=== PATIENT | male | born 1960 | race Caucasian/White ===

== ENCOUNTER 2017-11-27 19:48 | Emergency (ER) | payer OTHER ==
[~2017-11-27] VITALS: Ht 182.9 cm; Wt 95.3 kg
[2017-11-27 19:54] VITALS: BP 148/86
--- NOTE | 2017-11-27 21:41 | RADIOLOGY REPORT ---
EXAMINATION: XR SHOULDER, RIGHT CLINICAL INFORMATION: Pain after fall. COMPARISON: None TECHNIQUE: 3 views of the right shoulder. FINDINGS: No acute fracture or dislocation is seen. There are mild degenerative changes of the right AC joint. Nonspecific soft tissue calcifications seen adjacent to the humerus. The glenohumeral articulation appears normal. No displaced upper right rib fractures are seen. The portions of the right lung are clear. IMPRESSION: No acute osseous traumatic findings of the right shoulder.
--- NOTE | 2017-11-27 21:45 | ED MVC/FALL/TRAUMA COMPLAINT ---
History of Present Illness General Chief Complaint: Upper Extremity Injury Stated Complaint: "BRANCH FELL ON RT ARM" Source: patient Exam Limitations: no limitations Vital Signs & Intake/Output Vital Signs & Intake/Output Vital Signs Date Time Temp Pulse Resp B/P B/P Pulse O2 O2 Flow FiO2 Mean Ox Delivery Rate 11/27 1953 97.3 89 20 148/86 97 Room Air ED Intake and Output 11/28 0000 11/27 1200 Intake Total Output Total Balance Patient 210 lb Weight Weight Reported by Patient Measurement Method Allergies Coded Allergies: No Known Allergies (11/27/17) Reconcile Medications Ibuprofen 800 MG TABLET 1 TAB PO TID PAIN Triage Note: PT HERE WITH C/O FALLING OFF LADDER AND LANDING ON RIGHT ARM. PT REPORTS THAT HE WAS CUTTING A BRANCH THAT FELL AND KNOCKED HIM OVER. DENIES LOC OR HEADSTRIKE. DENIES BLOOD THINNERS. Triage Nurses Notes Reviewed? yes Onset: Abrupt Duration: hour(s): (2), constant, continues in ED, getting worse Timing: single episode today Severity: moderate, severe Severity Numbers: 7 Injuries/Fall Location: upper extremity Method of Injury: direct blow Loss of Consciousness: no loss of consciousness HPI: 57-year-old male with no medical history presents for evaluation of right shoulder pain. Patient reports that he was cutting a branch when it fell and landed on his right shoulder. There is no head strike or loss of consciousness. Patient reports pain located diffusely in the shoulder it is worse with movement. He reports he feels a grinding sensation when he moves his shoulder. He has no numbness or tingling no neck pain no headache no elbow or wrist pain. (Roger Monahan) Past History Travel History Traveled to [place] past 21 day No Medical History Any Pertinent Medical History? see below for history Neurological: NONE EENT: NONE Cardiovascular: NONE Respiratory: NONE Gastrointestinal: NONE Hepatic: NONE Renal: NONE Musculoskeletal: NONE Psychiatric: NONE Blood Disorders: NONE Cancer(s): NONE RIVET STICKER/Reproductive: NONE Surgical History Surgical History: non-contributory Psychosocial History What is your primary language Indonesian Tobacco Use: Never used ETOH Use: denies use Illicit Drug Use: denies illicit drug use Family History Hx Contributory? No (Roger Monahan) Review of Systems Review of Systems Constitutional: Reports: no symptoms. Eyes: Reports: no symptoms. Ears, Nose, Throat, Mouth: Reports: no symptoms. Respiratory: Reports: no symptoms. Cardiovascular: Reports: no symptoms. Gastrointestinal/Abdominal: Reports: no symptoms. Genitourinary: Reports: no symptoms. Musculoskeletal: Reports: joint pain, joint swelling, muscle pain, muscle stiffness. Skin: Reports: no symptoms. Neurological/Psychological: Reports: no symptoms. All Other Systems: Reviewed and Negative (Roger Monahan) Physical Exam Physical Exam General Appearance: well developed/nourished, no apparent distress, alert, awake Head: atraumatic, normal appearance Eyes: Bilateral: normal appearance, PERRL, EOMI. Ears, Nose, Throat, Mouth: moist mucous membrane Neck: normal inspection, supple, full range of motion Respiratory: normal breath sounds, chest non-tender, no respiratory distress, lungs clear Cardiovascular: regular rate/rhythm, normal peripheral pulses Peripheral Pulses: 2+ radial (R), 2+ radial (L) Back: normal inspection, normal range of motion, no vertebral tenderness Extremities: THERE IS DIFFUSE TENDERNESS TO PALPATION OF THE RT SHOULDER. THERE IS NO GROSS DEFORMITY OR AMBROSIO POINT TENDERNESS OF THE CLAVICLE OR AC JOINT. FULL ROM INTACT WITH SHELTON DURING ABDUCTION. N/V SUPPLY INTACT. NO PAIN IN THE RT ELBOW OR WRIST. RADIAL PULSE 2+ Neurologic/Psych: no motor/sensory deficits, awake, alert, oriented x 3, normal gait, normal mood/affect Skin: intact, normal color, warm/dry Core Measures ACS in differential dx? No CVA/TIA Diagnosis No Sepsis Present: No Sepsis Focused Exam Completed? No (Roger Monahan) Progress Differential Diagnosis: FRACTURE, CONTUSION, STRAIN/SPRAIN, DISLOCATION, SEPERATION Plan of Care: Orders Procedure Date/time Status Durable Medical Equipment 11/27 1665 Active Patient is here for evaluation of right shoulder pain. A tree branch fell on his shoulder. Neurovascular supplies intact no bony point tenderness. X-rays of the shoulder are negative for fracture. Patient was placed in a shoulder immobilizer rest ice elevation compression Tylenol ibuprofen for pain. There is not appear to be any other signs of trauma no cervical spine tenderness no head strike. Patient was referred to orthopedics. Advised him any physical therapy or MRI. Discussed return precautions patient agrees to plan Diagnostic Imaging: Viewed by Me: Radiology Read. Discussed w/RAD: Radiology Read. Radiology Impression: PATIENT: JAMIR DIAZ PRESENT AGE: 57 PATIENT ACCOUNT NO: [id number] : 61 LOCATION: [facility] ORDERING PHYSICIAN: Roger HARRISON SERVICE DATE: 11/27/17 EXAM TYPE: RAD - XRY-SHOULDER COMPLETE-RIGHT EXAMINATION: XR SHOULDER, RIGHT CLINICAL INFORMATION: Pain after fall. COMPARISON: None TECHNIQUE: 3 views of the right shoulder. FINDINGS: No acute fracture or dislocation is seen. There are mild degenerative changes of the right AC joint. Nonspecific soft tissue calcifications seen adjacent to the humerus. The glenohumeral articulation appears normal. No displaced upper right rib fractures are seen. The portions of the right lung are clear. IMPRESSION: No acute osseous traumatic findings of the right shoulder. DICTATED BY: Dennis Barrera MD DATE/TIME DICTATED:11/27/172134 BILL OF MATERIALS CLERK:MARTIN DATE/TIME TRANSCRIBED:11/27/172134 CONFIDENTIAL, DO NOT COPY WITHOUT APPROPRIATE AUTHORIZATION. <Electronically signed in Other Vendor System> SIGNED BY: Dennis Barrera MD 11/27/172140 (Roger Monahan) Departure Departure Disposition: HOME OR SELF CARE Condition: Stable Clinical Impression Primary Impression: Shoulder pain, acute Qualifiers: Laterality: right Qualified Code: M25.511 - Pain in right shoulder Referrals: Ruchi BRIDGES,Bryan Yanes Patient Has No Primary Care Dr (PCP/Family) Additional Instructions: Rest, avoid heavy lifting bending or excessive physical activity. Wear shoulder immobilizer. Ibuprofen 800 mg every 8 hours with food as needed for pain. Make a follow-up on it with provided orthopedic doctor Dr. Hopper soon as possible. Monitor symptoms return with any concerns. Please go over all results of today's visit with your primary care doctor. Contact your primary care doctor to let them know you were here in the emergency room. There may be nonspecific findings which may not be related to your visit today here in the emergency room but may require further evaluation and chronic monitoring by your primary care doctor. If you had a laceration today the chance of foreign body always remains. You should follow-up with your primary care doctor for recheck in 3-5 days for a wound check. If you had an x-ray done there is a chance that a fracture could have been missed on initial read and you should follow-up with your primary care doctor for repeat x-rays if symptoms persist. If your blood pressure was elevated here in the emergency room please have rechecked by mary primary care doctor within the next 48. If you were prescribed a narcotic here in the emergency room or any type of controlled substances you're not allowed to drive while taking this medication or operate any type of heavy machinery. Narcotics can make you feel lightheaded dizziness nausea and can cause constipation. You may need to picker tender helper a stool softener. Thank you for choosing [facility] emergency room. Please return to the emergency room immediately if you have any other concerns worsening of symptoms. Departure Forms: Customer Survey General Discharge Information Prescriptions: Current Visit Scripts Ibuprofen 1 TAB PO TID #30 TAB (Roger Monahan) PA/LEARNING AND DEVELOPMENT OFFICER Co-Sign Statement Statement: ED Attending supervision documentation- I saw and evaluated the patient. I have also reviewed all the pertinent lab results and diagnostic results. I agree with the findings and the plan of care as documented in the PA's/LEARNING AND DEVELOPMENT OFFICER's documentation. x I have reviewed the ED Record and agree with the PA's/LEARNING AND DEVELOPMENT OFFICER's documentation. [] Additions or exceptions (if any) to the PAs/LEARNING AND DEVELOPMENT OFFICER's note and plan are summarized below: [] (Giovani BRIDGES,[place]ison)
[2017-11-27] MEDS ORDERED: IBUPROFEN800 M1 PO (21:51)
== END 2017-11-27 22:11 ==
LOC: ERH 19:48
DX: M25.511 Pain in right shoulder (principal)
CPT/HCPCS: 73030-RT